=== PATIENT | female | born 1955 | race Caucasian/White ===

== ENCOUNTER 2016-06-14 07:41 | Day surgery (SDC) | payer OTHER ==
[~2016-06-14] VITALS: Ht 172.7 cm; Wt 99.8 kg
[~2016-06-14 07:41] MED LIST: CAR1 PO; CARI350T PO; EFF375 PO; FLUT16SP NS; HYDR50TA3 PO; LEVO50TA83 PO; OXYC-181 PO; PANT40SU PO; RANI300T4 PO; SIMV20TA4 PO; TRAZ-115 PO
[2016-06-14] MEDS ORDERED: fentaNYL-PF 50 mCg/mL 2 mL Inj IVPUSH PRN (08:05)
[2016-06-14] MEDS ORDERED: Sodium Chloride LOK Flush 10 mL Syringe IV PRN (08:05)
[2016-06-14 08:06] VITALS: BP 151/83; PULSE 84; RESP 16; O2SAT 98
[2016-06-14] MEDS ORDERED: LEVO50TA6 PO (08:09)
[2016-06-14] MEDS ORDERED: VENL50TA3 PO (08:09)
[2016-06-14] MEDS ORDERED: OXYC-466 PO (08:09)
[2016-06-14] MEDS ORDERED: SOMA350 PO (08:09)
[2016-06-14] MEDS ORDERED: PANT40TA3 PO (08:10)
[2016-06-14] MEDS: 0.9% Sodium Chloride 1,000 ML IV PRN ×3 (08:21→09:41)
[2016-06-14 09:47] VITALS: BP 129/70; PULSE 70; RESP 15; O2SAT 95
[2016-06-14 09:55] VITALS: BP 113/63; PULSE 63; RESP 15; O2SAT 95
--- NOTE | 2016-06-14 10:04 | ENDO ---
[address] [address] ENDOSCOPY PROCEDURE PATIENT: JESSEE MUNSON : 1955 MR#: [id number] ADMIT: 06/14/2016 JOB ID: [id number] PRIMARY PROVIDER: Misael Jones MD PROCEDURE: Colonoscopy with hot snare polypectomy and Endoclip deployment for hemostasis. INDICATIONS: A 61-year-old female with a family history of colon cancer in her dad. EQUIPMENT: PCF-H180-AL. SEDATION: 8 mg Versed, 200 mcg fentanyl. COMPLICATIONS: None identified. BOWEL PREPARATION: Fair, adequate exam. PROCEDURE INFORMATION: After the risks and benefits were explained, written and verbal informed consent was obtained. The patient was brought into the endoscopy suite and placed into the left lateral decubitus position. Sedation was achieved as above. A digital rectal examination accomplished. Minimal internal hemorrhoids noted. The scope was introduced into the rectum and advanced under direct visualization to the level of the cecum, as identified by the appendiceal orifice and ileocecal valve. The scope was slowly withdrawn to carefully examine the mucosa for any defects or lesions. Retroflexed views were accomplished in the rectum. The colon was decompressed, the scope removed from the patient who tolerated the procedure well. FINDINGS: The patient had some diverticulosis in the left colon. A very twisty colon. Challenging navigation initially. There were four polyps removed today, two from the ascending, two from the transverse. The largest was perhaps in the transverse at about 7-8 mm. Interestingly, the smallest polyp removed in the ascending was taken piecemeal. There was a small piece remaining after the initial hot snare. This was cold forceps away. However, there was some sustained mild bleeding after the cold forceps application. We created hemostasis with deployment of a 360 degree resolution clip. No other significant pathology was seen throughout. Retroflexed views disclosed some mild internal hemorrhoids with hypertrophied anal papillae. ENDOSCOPIC DIAGNOSES: 1. Multiple colon polyps. 2. Diverticulosis. 3. Hemorrhoids. RECOMMENDATIONS: 1. Await histopathology. 2. Repeat colonoscopy in three years' time. Based on the patient's tolerance of today's exam, I would recommend anesthesia next session.
[2016-06-14 10:05] VITALS: BP 137/74; PULSE 67; RESP 15; O2SAT 96
--- NOTE | 2016-06-15 10:33 | PATH ---
SURGICAL PATHOLOGY Attending Physician:Arleen Hall CASE STATUS: Signed Out PATIENT NAME: JESSEE MUNSON PID: [id number] : 1955 DATE COLLECTED:06/14/2016 15:01 SPECIMEN: Colon, Biopsy CLINICAL HISTORY: A: COLON POLYPS X4 FINAL DIAGNOSIS: 1.COLON POLYPS: MULTIPLE FRAGMENTS OF TUBULAR ADENOMA. FOUR POLYPS REMOVED. ICD10 CODE D12.6 GROSS DESCRIPTION: The specimen is received in one formalin filled container labeled with the patient's name, sublabeled "colon polyps" and consists of multiple portions of tissue which aggregate to 1.5 x 0.6 x 0.4 CM. The specimen is entirely submitted in one cassette. 06/14/2016 [facility] MICRO DESCRIPTION: See diagnosis. ICD-9 CODES: CPT CODES: 1: 68973 Electronically Signed Out Olimpia Junior MD [facility] Pathology [facility] [address], [place] [address] Technical component performed at [facility], [facility] [address], [address]
== END 2016-06-14 23:59 | disposition home or self-care (01) ==
LOC: END 07:41
PROVIDERS: ATTEND Internal Medicine Gastroenterology
DX: Z12.11 Encounter for screening for malignant neoplasm of colon (principal); D12.2 Benign neoplasm of ascending colon; D12.3 Benign neoplasm of transverse colon; K57.30 Diverticulosis of large intestine without perforation or abscess without bleeding; K64.9 Unspecified hemorrhoids; I10 Essential (primary) hypertension; E78.5 Hyperlipidemia, unspecified; K21.9 Gastro-esophageal reflux disease without esophagitis; E03.9 Hypothyroidism, unspecified; Z96.651 Presence of right artificial knee joint; Z87.442 Personal history of urinary calculi; Z87.891 Personal history of nicotine dependence
CPT/HCPCS: 45380; 45385; 99153; G0500; J2250; J7030